=== PATIENT | male | born 2000 | race Caucasian/White ===

== ENCOUNTER 2020-10-27 10:37 | Emergency (ER) | payer OTHER ==
[2020-10-27 11:38] LABS: #Monocytes 0.4 10x3/uL (0.0-1.1); #Neutrophils 12.6 10x3/uL (1.5-8.4); %Basophils 0.2 % (0.0-2.0); %Eosinophils 0.2 % (0.0-6.0); %Lymphocytes 1.2 % (18.0-47.0); %Monocytes 2.7 % (0.0-10.0); %Neutrophils 95.5 % (40.0-75.0); Mean Corpuscular HGB CONC 34.3 g/dL (32.0-36.0); Mean Corpuscular Hemoglobin 32.7 pg (27.0-33.0); Mean Corpuscular Volume 95.5 fl (81.2-95.1); Mean Platelet Volume 10.6 fl (7.4-10.4); Platelet Count 227 10x3/uL (150-450); RBC Distribution Width 11.9 % (11.5-14.5); White Blood Cell (WBC) Count 13.2 10x3/uL (3.5-10.5)
[2020-10-27 11:49] LABS: Anion Gap 15 mmol/L (10-20); BUN (Urea Nitrogen) 15 mg/dL (8.9-20.6); Calc. Creatinine Clearance 0 mL/min (70-130); Carbon Dioxide 27 mmol/L (22-29); Chloride 99 mmol/L (98-107); Glucose 108 mg/dL (70-105); Potassium 4.3 mmol/L (3.5-5.1); Sodium 137 mmol/L (136-145)
[2020-10-27] MEDS ORDERED: Ondansetron ODT 4 MG TAB ONE (12:23)
== END 2020-10-27 14:15 | disposition home or self-care (01) ==
LOC: CSHERS 10:37
DX: R11.2 Nausea with vomiting, unspecified (principal); R10.817 Generalized abdominal tenderness
CPT/HCPCS: 80048; 83690; 85025; 99284; Q0162